=== PATIENT | female | born 1965 | race Caucasian/White ===

== ENCOUNTER 2023-05-31 15:04 | Inpatient (IN) | payer MEDICARE ==
[~2023-05-31] VITALS: Ht 165.1 cm; Wt 59.0 kg
[~2023-05-31 15:04] MED LIST: ACETAMINOPHEN650 M5 PO; ACID CONTROLLER20 M1 PO; ALIVE CALCIUM PO; ATARAX,VISTARIL50 MG PO; BACLOFEN20 M1 PO; BUPROPION HYDR150 M3 PO; CETIRIZINE10 MG PO; CLOMIPRAMINE HC25 MG PO; CLOMIPRAMINE HC50 MG PO; CLONAZEPAM1 MG PO; CRANBERRY PLUS1 EAC1 PO; DEXTROAMPHETAMI PO; ENOXAPARIN40 MG/0.2 SQ; FLORAJEN ACIDO1 EACH PO; MIRALAX POWDER17 G1 PO; OSTERA TABLET1 EACH PO; OXYBUTYNIN5 MG PO; Ondansetron4 MG PO; PANTOPRAZOLE SO40 MG PO; TUMERSAID TABL1 EACH PO; WELLBUTRIN XL150 MG PO; ZANAFLEX2 M2 PO
[2023-05-31 15:21] VITALS: BP 116/88
[2023-05-31 16:34] LABS: BILIRUBIN Negative (Negative); BLOOD Negative (Negative); CLARITY Clear (Clear); COLOR Yellow (Yellow); GLUCOSE Negative (Negative); KETONE Negative (Negative); LEUKO ESTERASE Negative (Negative); NITRITE Negative (Negative); UROBILINOGEN 0.2 E.U./dl (0.0-1.0)
[2023-05-31 16:34] LABS: BASO % 0.4 % (0.0-1.0); EOS # 0.2 10*3/uL (0.0-0.4); EOS % 1.5 % (1.0-4.0); HEMATOCRIT 42.8 % (37.0-47.0); LYMPH # 2.1 10*3/uL (1.3-4.4); MEAN CELL VOLUME 94.7 fl (81.0-99.0); MEAN CORPUSCULAR HGB 30.3 pg (27.0-31.0); MEAN PLATELET VOLUME 9.4 fl (9.6-12.3); MONO # 0.7 10*3/uL (0.1-1.0); MONO % 7.4 % (3.0-9.0); NEUT # 6.8 10*3/uL (2.3-7.9); NEUT % 69.2 % (47.0-73.0); PLATELET COUNT AUTOMATED 335 10*3/uL (130-400); RED BLOOD COUNT 4.52 10*6/uL (4.10-5.10); RED CELL DISTRI WIDTH 13.3 % (0-14.5); WHITE BLOOD COUNT 9.9 10*3/uL (4.8-10.8)
[2023-05-31 16:47] LABS: BACTERIA 1+
[2023-05-31 16:50] LABS: URINE AMPHETAMINES Negative (1000ng/ml); URINE BARBITURATES Negative (200ng/ml); URINE BENZODIAZEPINES Negative (200ng/ml); URINE CANNABINOIDS (THC) Negative (50ng/ml); URINE COCAINE Negative (300ng/ml); URINE METHADONE Negative (300ng/ml); URINE OPIATES Negative (300ng/ml); URINE PHENCYCLIDINE Negative (25ng/ml)
[2023-05-31 17:10] LABS: ALKALINE PHOSPHATASE 93 U/L (46-116); BUN 21 mg/dl (9-23); CHLORIDE 106 mmol/L (98-107); ETHYL ALCOHOL 3.6 mg/dl (<3); POTASSIUM 4.7 mmol/L (3.4-5.1); SGPT/ALT 29 U/L (5-49); TOTAL PROTEIN 7.1 gm/dL (6.0-8.0)
[2023-05-31 18:33] VITALS: BP 124/63
[2023-05-31 20:00] VITALS: BP 124/63
[2023-06-01 07:56] VITALS: BP 120/84
[2023-06-01 08:06] LABS: CHOLESTEROL 200 mg/dL (<200); LDL CHOLESTEROL 126 mg/dL (9-159); TRIGLYCERIDES 62 mg/dl (<150)
[2023-06-01 08:51] LABS: VITAMIN D, 25-HYDROXY 77.9 ng/mL (30-100)
[2023-06-01 20:00] VITALS: BP 120/86
[2023-06-02 07:35] VITALS: BP 114/54
[2023-06-02 19:02] VITALS: BP 101/56
[2023-06-03 07:24] VITALS: BP 100/66
[2023-06-03 20:00] VITALS: BP 140/90
[2023-06-04 07:30] VITALS: BP 115/52
[2023-06-04 20:00] VITALS: BP 123/54
[2023-06-05 07:32] VITALS: BP 112/72
[2023-06-05 20:00] VITALS: BP 128/84
[2023-06-06 07:41] VITALS: BP 109/68
[2023-06-06 20:00] VITALS: BP 139/73
[2023-06-06 22:06] LABS: TOTAL (CLO+NORCLO) 474 ng/mL (220-500)
[2023-06-07 08:00] VITALS: BP 116/56
[2023-06-07 19:01] VITALS: BP 127/96
[2023-06-08 08:58] VITALS: BP 111/66
[2023-06-08 20:00] VITALS: BP 143/86
[2023-06-09 08:00] VITALS: BP 119/54
[2023-06-09 19:50] VITALS: BP 134/64
[2023-06-10 08:35] VITALS: BP 112/70
[2023-06-10] MEDS ORDERED: CLONAZEPAM0.5 M2 PO (09:48)
[2023-06-10] MEDS ORDERED: BIOTENE MOIST44.3 ML PO (09:48)
[2023-06-10] MEDS ORDERED: CLOMIPRAMINE HC25 MG PO (09:48)
[2023-06-10] MEDS ORDERED: BUPROPION HYDR150 M3 PO (09:48)
[2023-06-10] MEDS ORDERED: CLONAZEPAM1 MG PO (09:48)
[2023-06-10] MEDS ORDERED: RIVASTIGMINE1 EAC1 T (09:48)
[2023-06-10] MEDS ORDERED: REXULTI2 MG PO (09:48)
== END 2023-06-10 13:45 | disposition home or self-care (01) | DRG 885 ==
LOC: ED 15:04 → 3N 18:02
PROVIDERS: Emergency Medicine; ADMIT Psychiatry & Neurology Psychiatry; ATTEND Psychiatry & Neurology Psychiatry
DX: F31.9 Bipolar disorder, unspecified (principal); N39.0 Urinary tract infection, site not specified; F41.9 Anxiety disorder, unspecified; K21.9 Gastro-esophageal reflux disease without esophagitis; M48.00 Spinal stenosis, site unspecified; G35 Multiple sclerosis; F43.21 Adjustment disorder with depressed mood; F03.90 Unspecified dementia, unspecified severity, without behavioral disturbance, psychotic disturbance, mood disturbance, and anxiety; R73.9 Hyperglycemia, unspecified; F43.20 Adjustment disorder, unspecified; Z88.8 Allergy status to other drugs, medicaments and biological substances